=== PATIENT | female | born 1995 | race African-American/Black ===

== ENCOUNTER 2018-03-29 19:51 | Emergency (ER) | payer OTHER ==
[~2018-03-29] VITALS: Ht 175.3 cm; Wt 62.6 kg
[2018-03-29] MEDS ORDERED: NKM (20:09)
--- NOTE | 2018-03-29 20:14 | NUR ---
ED Nurse Note: pt walked in due to strong smelling urine x week. denies dysuria. pt stated her last partner told her he has clamydia. Addendum: 03/29/18 at 2018 by PDELEON ED Nurse Note: PT DENIES VAGINAL DISCHARGE, SWELLING, ITCHING, BURNING WHEN URINATING. PER PT "IT SMELL A LITTLE BIT WHEN I URINATE"
[2018-03-29 20:16] VITALS: BP 98/68
--- NOTE | 2018-03-29 20:42 | Emergency Room Report ---
History of Present Illness General Chief Complaint: Female Urogenital Problems Source: Patient Present Illness HPI Is a 22-year-old female presented after increased foul-smelling urine. Patient reports having recent unprotected sex with a partner who was recently tested positive for chlamydia. Patient was not noted to have any pain. She reports having increased normal menses approximately 2 weeks ago. She denies any fever or abdominal pain. Allergies: Coded Allergies: IODINE (Verified Allergy, Unknown, 03/29/18) Patient History Last Menstrual Period: mar Now: No : 1 Para: 0 Reviewed Nursing Documentation: PMH: Agreed; PSxH: Agreed Nursing Documentation-PMH Past Medical History: No Stated History Review of Systems All Other Systems: negative except mentioned in HPI Physical Exam Vital Signs Date Time Temp Pulse Resp B/P (MAP) Pulse Ox O2 Delivery O2 Flow Rate FiO2 03/29/18 20:04 98.2 90 16 98/68 99 Room Air Sp02 EP Interpretation: reviewed, normal General Appearance: normal inspection, well appearing, no apparent distress, alert, GCS 15 Head: atraumatic ENT: normal ENT inspection, hearing grossly normal, normal voice Neck: normal inspection, full range of motion, supple, no bony tend Respiratory: normal inspection, lungs clear, normal breath sounds, no respiratory distress, no retraction, no wheezing Cardiovascular #1: regular rate, rhythm, no edema Gastrointestinal: normal inspection, normal bowel sounds, non tender, soft, no guarding, no hernia Genitourinary: no CVA tenderness Musculoskeletal: normal inspection, back normal, normal range of motion Neurologic: normal inspection, alert, oriented x3, responsive, 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 Differential diagnosis included was not limited to gonorrhea, chlamydia, among others. test was performed. Patient will be empirically treated for chlamydia. Patient reportedly was exposed to STDs. She will be empirically treated with Rocephin she was given prescription for doxycycline. test was negative. Patient was advised to follow-up for further STD testing. Labs Test 03/29/18 20:19 Urine HCG, Qualitative Negative (NEGATIVE) Last Vital Signs Date Time Temp Pulse Resp B/P (MAP) Pulse Ox O2 Delivery O2 Flow Rate FiO2 03/29/18 20:16 98.2 90 16 98/68 99 Room Air Status: improved Disposition: HOME, SELF-CARE Condition: Stable Scripts Doxycycline Monohydrate* (DOXYCYCLINE MONOHYDRATE*) 100 Mg Capsule 100 MG ORAL Q12H, #14 CAP 0 Refills Prov: Skinny Aguayo MD 03/29/18 Skinny Aguayo MD Mar 29, 2018 20:42
[2018-03-29] MEDS ORDERED: Lidocaine 1% MPF 10mg/ml 5ml INJ ONE (20:45)
[2018-03-29] MEDS ORDERED: DOXYCYCLINE MO100 MG ORAL (20:56)
[2018-03-29 21:00] VITALS: BP 98/68
--- NOTE | 2018-03-29 21:00 | NUR ---
ED Nurse Note: pt dc per ermd order, pt is aox4, pt dc and prscription instructions given pt verablized understaing pt is id band removed, pt took all belongings pt is able to ambulate with steady gait
== END 2018-03-29 21:00 | disposition home or self-care (01) ==
LOC: EMR 20:10
DX: Z20.2 Contact with and (suspected) exposure to infections with a predominantly sexual mode of transmission (principal)
CPT/HCPCS: 81025; 96372; 96374; 99284; J0696